=== PATIENT | female | born 1950 | race Caucasian/White ===

== ENCOUNTER 2017-07-14 14:05 | Emergency (ER) | payer MEDICARE, OTHER ==
[~2017-07-14] VITALS: Ht 154.9 cm; Wt 69.1 kg
[~2017-07-14 14:05] MED LIST: LISI-363 PO; LOVA20TA PO; SERT50 PO
[2017-07-14 14:16] VITALS: BP 155/70; PULSE 74; RESP 18; TEMP 99.1; O2SAT 94
[2017-07-14] MEDS ORDERED: PANT40TA3 PO (14:50)
[2017-07-14] MEDS ORDERED: AMLO10TA2 PO (14:50)
[2017-07-14] MEDS ORDERED: ATOR80TA45 PO (14:50)
[2017-07-14] MEDS ORDERED: SERT-129 PO (14:50)
--- NOTE | 2017-07-14 15:30 | PD ---
HPI Chief Complaint: Fall Time Seen by Provider: 15:10 Travel History International Travel<30 days: No Contact w/Intl Traveler<30days: No Traveled to known affect area: No History of Present Illness HPI 67-year-old female presents to the emergency room for evaluation of right anterior chest wall pain after falling last night. Patient was holding her 90 pound dog when it pulled her down and she landed on her right chest/breast on the ground. She denies hitting her head or loss of consciousness. Denies any other pain. Pain is localized to the right anterior chest wall without radiation. She denies any significant breast pain. States she had immediate pain worsened this morning upon waking up. She has not taken anything or done anything for her symptoms. Pain is constant, worse with coughing, laughing, deep breathing. She denies any difficulty breathing. She has history of hypertension, depression, and hypercholesterolemia. PFSH Past Medical History Hx Anticoagulant Therapy: No Depression: Yes High Cholesterol: Yes Chest Pain: Yes ("ANGINA") Diminished Hearing: No Hypertension: Yes Immunizations Current: Yes ?: Not Past Surgical History Gynecologic Surgery: Yes Hysterectomy: Yes Joint Replacement: Yes (RIGHT KNEE) Tonsillectomy: Yes Social History Alcohol Use: Yes (wine daily) Tobacco Use: No (STOPPED ) Substance Use: No Allergies-Medications (Allergen,Severity, Reaction): Coded Allergies: penicillin G (Unverified Allergy, Severe, nausea, 07/14/17) Reported Meds & Prescriptions Reported Meds & Active Scripts Active Reported Sertraline (Sertraline HCl) 100 Mg Tab 100 Mg PO BID Pantoprazole (Pantoprazole Sodium) 40 Mg Tab 40 Mg PO DAILY Amlodipine (Amlodipine Besylate) 10 Mg Tab 10 Mg PO DAILY Atorvastatin (Atorvastatin Calcium) 80 Mg Tab 80 Mg PO HS Review of Systems Except as stated in HPI: all other systems reviewed are Neg Physical Exam Narrative GENERAL: Well-nourished, well-developed female no acute distress. Afebrile. Ambulatory. SKIN: Focused skin assessment warm/dry. HEAD: Normocephalic. EYES: No scleral icterus. No injection or drainage. NECK: Supple, trachea midline. No JVD or lymphadenopathy. CARDIOVASCULAR: Regular rate and rhythm without murmurs, gallops, or rubs. RESPIRATORY: Breath sounds equal bilaterally. No accessory muscle use. No crackles, rales, wheezes, or rhonchi. CHEST: Nontender throughout without deformity or crepitus. No retractions or use of accessory muscles. Data Data Last Documented VS Vital Signs Date Time Temp Pulse Resp B/P (MAP) Pulse Ox O2 Delivery O2 Flow Rate FiO2 07/14/17 14:16 99.1 74 18 155/70 (98) 94 Orders Orders Ribs, Uni (W/Exp Cxr-Min 3vw) (07/14/17 ) Resp Incentive Spirometry (07/14/17 ) MDM Medical Decision Making Medical Screen Exam Complete: Yes Emergency Medical Condition: Yes Medical Record Reviewed: Yes Differential Diagnosis Fracture, pneumothorax, strain, sprain Narrative Course 67-year-old female presents to the emergency room for evaluation of right anterior chest wall pain after trip and fall last night. Patient landed directly on her right chest. Adamantly denies any other injury. Physical exam is reassuring. Patient resting comfortably in bed, no increased work of breathing. Vital signs stable. There is no ecchymosis, obvious deformity of the chest wall. No crepitus. Extreme tenderness to palpation especially over right lateral ribs #4, 5, 6. No breast tenderness. X-ray is negative for fracture. Likely occult fracture or rib contusion. Patient was informed that she should treat this as a fracture and follow-up with a primary care physician or return immediately for any worsening symptoms. She was discharged with incentive spirometer and prescription for tramadol. She understands and agrees to plan. Diagnosis Primary Impression: Contusion of rib on right side Qualified Codes: S20.211A - Contusion of right front wall of thorax, initial encounter Referrals: Primary Care Physician Additional Instructions: Rest and drink plenty of fluids. Incentive spirometer as directed. Tramadol as directed, as needed for pain. Do not drink alcohol or drive while taking this medication. Follow-up with a primary care physician. Return to the emergency room for worsening symptoms. Med/Other Pt SpecificInfo: Prescription(s) given Disposition: 01 DISCHARGE HOME Condition: Stable Dora Grigsby Jul 14, 2017 15:30
--- NOTE | 2017-07-14 17:22 | RADRPT ---
EXAM DATE/TIME: 07/14/2017 17:06 [facility] COMPARISON: No previous studies available for comparison. INDICATIONS : Fell, right side chest wall pain, anterior and posterior pain MEDICAL HISTORY : Hypertension. SURGICAL HISTORY : None. ENCOUNTER: Initial ACUITY: 1 day PAIN SCORE: 9/10 LOCATION: Right chest FINDINGS: Trace left base atelectasis. No pleural effusion or pneumothorax. Heart size within normal limits. Thoracic aorta mildly tortuous. No perceptible rib fracture. CONCLUSION: No displaced rib fracture demonstrated. No pneumothorax. Mild left base atelectasis. Jose Stroud MD on July 14, 2017 at 17:18 Board Certified Radiologist. This report was verified electronically.
[2017-07-14] MEDS ORDERED: HYDR-3516 PO (17:30)
== END 2017-07-14 17:53 | disposition home or self-care (01) ==
LOC: PHEFT 14:05
DX: S20.211A Contusion of right front wall of thorax, initial encounter (principal); J98.11 Atelectasis; I10 Essential (primary) hypertension; F32.9 Major depressive disorder, single episode, unspecified; E78.00 Pure hypercholesterolemia, unspecified; W01.0XXA Fall on same level from slipping, tripping and stumbling without subsequent striking against object, initial encounter; Z88.0 Allergy status to penicillin; Z79.899 Other long term (current) drug therapy
CPT/HCPCS: 71101; 94150; 99283